=== PATIENT | female | born 1935 | race Two or more races ===

== ENCOUNTER 2016-07-30 17:53 | Inpatient (IN) | payer OTHER, MEDICAID ==
[~2016-07-30] VITALS: Ht 147.3 cm; Wt 66.6 kg
[2016-07-30 19:40] LABS: DEFINITIVE VIEW TRANSMISSION; Hematocrit 19.1 % (36.0-46.0); Mean Corpuscular Hemoglobin 17.6 pg (28.0-32.0); Mean Corpuscular Hgb Conc. 29.7 g/dL (32.0-36.0); Mean Corpuscular Volume 59.3 fL (80.0-100.0); Mean Platelet Volume 7.4 fL (7.4-10.4); Platelet Count (auto) 252 10^3/uL (140-450); Red Cell Distribution Width 19.7 % (11.6-16.0); White Blood Cell 3.7 10^3/uL (4.4-10.8)
[2016-07-30 19:51] LABS: Hemoglobin 5.7 g/dL (12.2-16.2)
[2016-07-30 19:52] LABS: Metamyelocytes % 0; Myelocytes % 0; Promyelocytes % 0; Reactive Lymphocytes 0
[2016-07-30 20:04] LABS: Albumin 2.9 g/dL (3.4-5.0); BUN/Creatinine Ratio 32.3; Calcium 8.2 mg/dL (8.5-10.1); Potassium 4.4 mmol/L (3.5-5.1)
[2016-07-30 20:15] LABS: Bilirubin, Total 0.3 mg/dL (0.2-1.0); Total Protein 7.5 g/dL (6.4-8.2)
[2016-07-30 20:51] LABS: Platelet Estimate Adequate
[2016-07-30 20:52] LABS: Anisocytosis Moderate; Hypochromia Moderate; Microcytosis Moderate; Ovalocytes FEW
[2016-07-30] MEDS ORDERED: METF-312 PO (21:16)
[2016-07-30] MEDS ORDERED: OMEP20CA5 PO (21:20)
[2016-07-30] MEDS ORDERED: ESCI10TA PO (21:20)
[2016-07-30] MEDS ORDERED: LOSA50TA6 PO (21:20)
[2016-07-30] MEDS ORDERED: NOR5T PO (21:20)
[2016-07-30] MEDS ORDERED: MELO-86 PO (21:20)
[2016-07-30] MEDS ORDERED: PANTOPRAZOLE SODIUM 40 MG/10 ML VIAL IV ONE (22:00)
[2016-07-30] MEDS ORDERED: SODIUM CHLORIDE 0.9% 1,000 ML IV ONE (22:00)
[2016-07-30] MEDS ORDERED: PHYTONADIONE (VIT K)10 MG/ML 1ML VIAL SUBCUT ONE (22:00)
[2016-07-30 22:27] LABS: INR 1.08 (0.9-1.15); Partial Thromboplastin Time 26.6 sec (22.64-33.71); Prothrombin Time 11.1 sec (9.37-12.3)
[2016-07-30 22:51] LABS: Urine Bilirubin Negative (Negative); Urine Blood Negative /uL (Negative); Urine Color Yellow (Yellow); Urine Glucose Normal (Normal); Urine Ketone Negative (Negative); Urine Nitrite Negative (Negative); Urine RBC <1 /hpf (0 - 4); Urine Squamous Epithelial Cell FEW /hpf (<5); Urine pH 5.5 (5.0-8.0)
[2016-07-31] VITALS (15 sets, daily range): BP systolic 117–157; BP diastolic 60–89
[2016-07-31 00:12] LABS: DEFINITIVE VIEW TRANSMISSION; Mean Corpuscular Hemoglobin 17.8 pg (28.0-32.0); Mean Corpuscular Hgb Conc. 29.6 g/dL (32.0-36.0); Mean Platelet Volume 8.1 fL (7.4-10.4); Platelet Count (auto) 249 10^3/uL (140-450); Red Cell Distribution Width 19.5 % (11.6-16.0); White Blood Cell 3.4 10^3/uL (4.4-10.8)
[2016-07-31 00:18] LABS: Metamyelocytes % 0; Myelocytes % 0; Promyelocytes % 0; Reactive Lymphocytes 0
[2016-07-31] MEDS ORDERED: EPOETIN ALFA 10,000 UNIT/1 ML VIAL IV ONE (00:30)
[2016-07-31] MEDS ORDERED: SODIUM CHLORIDE 0.9% 1,000 ML IV ONE (00:45)
[2016-07-31] MEDS ORDERED: DEXTROSE (50%) 50ML SYRG IV PRN (01:15)
[2016-07-31 01:30] LABS: Hypochromia Marked; Microcytosis Marked; Platelet Estimate Adequate
[2016-07-31] MEDS: methylPREDNISolone SOD SUCC 125 MG/2 ML VL IV SCH ×3 (01:30→21:44)
[2016-07-31 01:31] LABS: Anisocytosis Moderate; Ovalocytes FEW
[2016-07-31] MEDS: IPRATROPIUM BROM 0.5 MG/2.5ML INH SOL NEB SCH ×5 (02:00→18:00)
[2016-07-31] MEDS: ALBUTEROL SULF 2.5 MG/0.5ML(0.5%) NEB SOLN NEB SCH ×5 (02:00→18:00)
[2016-07-31] MEDS ORDERED: MORPHINE SULF INJ 2 MG/ML SYRINGE 1ML IV PRN (03:30)
[2016-07-31] MEDS ORDERED: NITROGLYCERIN 0.4 MG SL TAB SL PRN (03:30)
[2016-07-31] MEDS: CITALOPRAM HYDROBR 20 MG TAB PO SCH (03:47)
[2016-07-31] MEDS: InsuLIN REG 1unit/0.01ml Soln (100units/ml) SC SCH ×3 (05:43→18:03)
[2016-07-31] MEDS: ACCU-CHEK COMFORT CURVE STRIP VI SCH ×3 (05:43→18:03)
[2016-07-31] MEDS: CARVEDILOL 3.125 MG TAB PO SCH ×2 (11:16→21:45)
[2016-07-31] MEDS: PANTOPRAZOLE SODIUM 40 MG/10 ML VIAL IV SCH ×2 (11:16→21:44)
[2016-07-31] MEDS: ACETAMINOPHEN 500 MG TAB PO PRN ×2 (11:17→17:33)
[2016-07-31] MEDS: ENALAPRIL MALEATE 10 MG TAB PO SCH (11:17)
[2016-07-31 18:13] LABS: Hematocrit 29.1 % (36.0-46.0); Hemoglobin 9.1 g/dL (12.2-16.2)
[2016-08-01] MEDS: ACCU-CHEK COMFORT CURVE STRIP VI SCH ×4 (00:01→18:08)
[2016-08-01] MEDS: InsuLIN REG 1unit/0.01ml Soln (100units/ml) SC SCH ×4 (00:03→18:00)
[2016-08-01 05:35] VITALS: BP 118/41
[2016-08-01] MEDS: ACETAMINOPHEN 500 MG TAB PO PRN (05:55)
[2016-08-01 06:20] LABS: DEFINITIVE VIEW TRANSMISSION; Hematocrit 27.6 % (36.0-46.0); Hemoglobin 8.7 g/dL (12.2-16.2); Mean Corpuscular Hemoglobin 21.2 pg (28.0-32.0); Mean Corpuscular Hgb Conc. 31.5 g/dL (32.0-36.0); Mean Corpuscular Volume 67.2 fL (80.0-100.0); Mean Platelet Volume 8.1 fL (7.4-10.4); Platelet Count (auto) 256 10^3/uL (140-450); SUSPECT VIEW TRANSMISSION; White Blood Cell 4.8 10^3/uL (4.4-10.8)
[2016-08-01 06:43] LABS: Potassium 3.6 mmol/L (3.5-5.1)
[2016-08-01 06:50] LABS: Red Cell Distribution Width 27.8 % (11.6-16.0)
[2016-08-01 06:51] LABS: Metamyelocytes % 0; Myelocytes % 0; Promyelocytes % 0; Reactive Lymphocytes 0
[2016-08-01 06:58] LABS: Albumin 2.8 g/dL (3.4-5.0); BUN/Creatinine Ratio 21.7; Calcium 8.4 mg/dL (8.5-10.1)
[2016-08-01 07:02] LABS: Bilirubin, Total 0.9 mg/dL (0.2-1.0); Total Protein 7.2 g/dL (6.4-8.2)
[2016-08-01 09:00] VITALS: BP 130/67
[2016-08-01] MEDS: PANTOPRAZOLE SODIUM 40 MG/10 ML VIAL IV SCH ×2 (09:35→22:01)
[2016-08-01] MEDS: methylPREDNISolone SOD SUCC 125 MG/2 ML VL IV SCH ×2 (09:35→22:01)
[2016-08-01] MEDS: CITALOPRAM HYDROBR 20 MG TAB PO SCH (09:36)
[2016-08-01] MEDS: ENALAPRIL MALEATE 10 MG TAB PO SCH (09:36)
[2016-08-01] MEDS: CARVEDILOL 3.125 MG TAB PO SCH ×2 (09:37→22:02)
[2016-08-01] MEDS: HYDROcodone-ACET 5/325MG TAB PO PRN ×2 (12:22→20:27)
[2016-08-01 13:00] VITALS: BP 141/74
[2016-08-01 14:09] LABS: Microcytosis Marked
[2016-08-01 14:12] LABS: Anisocytosis Marked; Hypochromia Moderate; Ovalocytes FEW; Platelet Estimate Adequate; Tear Drop Cells FEW
[2016-08-01] MEDS ORDERED: GOLYTELY 4L KIT PO ONE ×2 (15:15)
[2016-08-01 17:00] VITALS: BP 137/77
[2016-08-01 21:30] VITALS: BP 137/50
[2016-08-02] MEDS: ACCU-CHEK COMFORT CURVE STRIP VI SCH ×4 (00:28→18:00)
[2016-08-02 05:00] VITALS: BP 139/69
[2016-08-02] MEDS: InsuLIN REG 1unit/0.01ml Soln (100units/ml) SC SCH ×4 (05:39→18:37)
[2016-08-02 06:30] LABS: Hematocrit 27.7 % (36.0-46.0); Hemoglobin 8.6 g/dL (12.2-16.2)
[2016-08-02] MEDS ORDERED: SODIUM CHLORIDE LOCK 10 ML ONE (08:37)
[2016-08-02] MEDS ORDERED: LIDOCAINE VISCOUS 2% 15ML UD ONE (08:37)
[2016-08-02] MEDS ORDERED: diphenhdrAMINE HCL 50 MG/1 ML VL ONE (08:38)
[2016-08-02 08:45] VITALS: BP 127/67
[2016-08-02] MEDS: HYDROcodone-ACET 5/325MG TAB PO PRN ×2 (08:45→20:57)
[2016-08-02] MEDS: PANTOPRAZOLE SODIUM 40 MG/10 ML VIAL IV SCH (09:40)
[2016-08-02] MEDS: methylPREDNISolone SOD SUCC 125 MG/2 ML VL IV SCH ×2 (09:40→21:50)
[2016-08-02] MEDS: CARVEDILOL 3.125 MG TAB PO SCH ×2 (10:00→21:51)
[2016-08-02] MEDS: ENALAPRIL MALEATE 10 MG TAB PO SCH (10:00)
[2016-08-02] MEDS: CITALOPRAM HYDROBR 20 MG TAB PO SCH (10:00)
[2016-08-02] MEDS: fentaNYL CITRATE 100 MCG/2 ML VL ONE ×2 (12:31→12:39)
[2016-08-02] MEDS: MIDAZOLAM HCL 5 MG/ML-1ML VIAL ONE ×2 (12:31→12:39)
[2016-08-02 17:00] VITALS: BP 121/69
[2016-08-02 22:13] VITALS: BP 123/77
[2016-08-02] MEDS: ACETAMINOPHEN 500 MG TAB PO PRN (22:51)
[2016-08-03] MEDS: ACCU-CHEK COMFORT CURVE STRIP VI SCH ×3 (00:29→12:00)
[2016-08-03] MEDS: InsuLIN REG 1unit/0.01ml Soln (100units/ml) SC SCH ×3 (00:33→12:00)
[2016-08-03 05:45] VITALS: BP 127/69
[2016-08-03 06:42] LABS: Hematocrit 26.7 % (36.0-46.0); Hemoglobin 8.4 g/dL (12.2-16.2)
[2016-08-03 09:00] VITALS: BP 134/70
[2016-08-03] MEDS: methylPREDNISolone SOD SUCC 125 MG/2 ML VL IV SCH (10:00)
[2016-08-03] MEDS: CARVEDILOL 3.125 MG TAB PO SCH (10:02)
[2016-08-03] MEDS: ENALAPRIL MALEATE 10 MG TAB PO SCH (10:03)
[2016-08-03] MEDS: CITALOPRAM HYDROBR 20 MG TAB PO SCH (10:03)
[2016-08-03 13:09] VITALS: BP 102/57
== END 2016-08-03 14:05 | disposition home or self-care (01) | DRG 300 ==
LOC: ER 17:59 → TELE 18:00 → TELE-CENTR 07-31 04:05
PROVIDERS: ADMIT Emergency Medicine; ATTEND Internal Medicine Pulmonary Disease
PROC: 30233N1 Transfusion of Nonautologous Red Blood Cells into Peripheral Vein, Percutaneous Approach (ICD-10-PCS; principal; 2016-07-31)
PROC: 0DJD8ZZ Inspection of Lower Intestinal Tract, Via Natural or Artificial Opening Endoscopic (ICD-10-PCS; 2016-08-02)
PROC: 0WJP8ZZ Inspection of Gastrointestinal Tract, Via Natural or Artificial Opening Endoscopic Approach (ICD-10-PCS; 2016-08-02 12:28)
DX: Q27.33 Arteriovenous malformation of digestive system vessel (principal); K92.2 Gastrointestinal hemorrhage, unspecified; F33.9 Major depressive disorder, recurrent, unspecified; E44.0 Moderate protein-calorie malnutrition; D62 Acute posthemorrhagic anemia; E11.9 Type 2 diabetes mellitus without complications; D50.0 Iron deficiency anemia secondary to blood loss (chronic); I10 Essential (primary) hypertension; K57.90 Diverticulosis of intestine, part unspecified, without perforation or abscess without bleeding; E78.5 Hyperlipidemia, unspecified; K64.8 Other hemorrhoids; M19.90 Unspecified osteoarthritis, unspecified site; Z79.899 Other long term (current) drug therapy; Z90.49 Acquired absence of other specified parts of digestive tract; Z87.81 Personal history of (healed) traumatic fracture; Z68.30 Body mass index [BMI] 30.0-30.9, adult
CPT/HCPCS: 36415; 36430; 43235; 45378; 71010; 80053; 81001; 82140; 82962; 83036; 85007; 85014; 85018; 85027; 85610; 85730; 86850; 86900; 86901; 86920; 96361; 96374; C9113; J0885; J1815; J2250; J3430

== ENCOUNTER 2017-04-22 13:32 | Inpatient (IN) | payer MEDICARE, MEDICAID ==
[~2017-04-22] VITALS: Ht 160 cm; Wt 71.0 kg
[~2017-04-22 13:32] MED LIST: ESCI10TA PO; HYDR-4683 PO; LOSA50TA6 PO; METF-370 PO; OMEP20CA74 PO
[2017-04-22 14:17] LABS: Eosinophils # (auto) 0 uL; Hemoglobin 9.8 g/dL (12.2-16.2); Platelet Count (auto) 191 10^3/uL (140-450)
[2017-04-22 14:19] LABS: Basophils # (auto) 0.1 uL; Basophils % (auto) 0.9 % (0.0-2.0); Eosinophils % (auto) 0.5 % (0.0-7.0); Hematocrit 31.2 % (36.0-46.0); Lymphocytes # (auto) 0.7 uL; Lymphocytes % (auto) 9.8 % (10.0-50.0); Mean Corpuscular Hemoglobin 22.9 pg (28.0-32.0); Mean Corpuscular Hgb Conc. 31.4 g/dL (32.0-36.0); Mean Corpuscular Volume 72.7 fL (80.0-100.0); Mean Platelet Volume 7.3 fL (6.9-10.8); Monocytes # (auto) 0.7 uL; Monocytes % (auto) 9.3 % (0.0-12.0); Neutrophils % (auto) 79.5 % (37.0-80.0); Red Cell Distribution Width 18.3 % (11.8-14.3); White Blood Cell 7.5 10^3/uL (4.4-10.8)
[2017-04-22 14:40] LABS: Albumin 3.4 g/dL (3.4-5.0); BUN/Creatinine Ratio 36.4; Bilirubin, Total 0.6 mg/dL (0.2-1.0); Calcium 8.9 mg/dL (8.5-10.1); Potassium 3.8 mmol/L (3.5-5.1); Total Protein 8.6 g/dL (6.4-8.2)
[2017-04-22] MEDS ORDERED: SODIUM CHLORIDE 0.9% 1,000 ML IVB ONE (16:21)
[2017-04-22] MEDS ORDERED: HYDROcodone-ACET 10/325MG TAB PO ONE (16:30)
[2017-04-22 17:08] LABS: INR 0.99 (0.9-1.15); Partial Thromboplastin Time 28.6 sec (22.64-33.71); Prothrombin Time 10.8 sec (9.37-12.3)
[2017-04-22 18:54] LABS: Urine Bilirubin Negative (Negative); Urine Blood 2+ /uL (Negative); Urine Color Yellow (Yellow); Urine Glucose Normal (Normal); Urine Ketone Negative (Negative); Urine Mucus FEW (None Seen); Urine Nitrite Negative (Negative); Urine RBC 13 /hpf (0 - 4); Urine Squamous Epithelial Cell FEW /hpf (<5)
[2017-04-22] MEDS ORDERED: cefTRIAXone 1GM/50ML D5W 50 ML IV ONE (19:30)
[2017-04-23] MEDS ORDERED: IBUPROFEN 600 MG TAB PO PRN (01:00)
[2017-04-23] MEDS ORDERED: DEXTROSE (50%) 50ML SYRG IV PRN (01:00)
[2017-04-23] MEDS ORDERED: ONDANSETRON HCL 4 MG/2 ML VIAL IV PRN (01:00)
[2017-04-23] MEDS ORDERED: DOCUSATE SOD 100 MG CAP PO PRN (01:00)
[2017-04-23 01:34] LABS: Temperature: 21.3 C (20.0-25.0)
[2017-04-23 03:24] VITALS: BP 147/76
[2017-04-23] MEDS ORDERED: INFLUENZA QUAD 2017-2018 0.5 ML SYRG IM ONE (03:45)
[2017-04-23] MEDS ORDERED: PNEUMOCOCCAL VACC POLYS 25 MCG/0.5 ML VIAL IM ONE (03:45)
[2017-04-23] MEDS: HYDROcodone-ACET 5/325MG TAB PO PRN ×3 (04:28→21:30)
[2017-04-23 05:00] VITALS: BP 129/69
[2017-04-23] MEDS: ACCU-CHEK COMFORT CURVE STRIP VI SCH ×3 (05:56→17:58)
[2017-04-23] MEDS: InsuLIN REG 1unit/0.01ml Soln (100units/ml) SC SCH ×3 (05:56→17:58)
[2017-04-23] MEDS: FERROUS SULFATE 325 MG TAB PO SCH ×2 (08:41→18:36)
[2017-04-23 09:40] VITALS: BP 116/74
[2017-04-23] MEDS: ENOXAPARIN SOD 40 MG/0.4 ML SYRINGE SC SCH (10:25)
[2017-04-23] MEDS: CARVEDILOL 3.125 MG TAB PO SCH ×2 (10:27→21:29)
[2017-04-23] MEDS: LOSARTAN POTASSIUM 50 MG TAB PO SCH (10:27)
[2017-04-23] MEDS: FUROSEMIDE 20 MG TAB PO SCH (10:28)
[2017-04-23] MEDS: FAMOTIDINE 20 MG TAB PO SCH ×2 (10:28→21:29)
[2017-04-23 14:05] VITALS: BP 129/68
[2017-04-23 17:29] VITALS: BP 144/70
[2017-04-23 21:27] VITALS: BP 118/68
[2017-04-23] MEDS ORDERED: cefTRIAXone 1GM/50ML D5W 50 ML IV SCH (22:00)
[2017-04-24] MEDS: ACCU-CHEK COMFORT CURVE STRIP VI SCH ×3 (01:10→13:01)
[2017-04-24] MEDS: InsuLIN REG 1unit/0.01ml Soln (100units/ml) SC SCH ×3 (01:11→12:00)
[2017-04-24 05:15] VITALS: BP 142/99
[2017-04-24] MEDS: FERROUS SULFATE 325 MG TAB PO SCH (08:39)
[2017-04-24 09:00] VITALS: BP 87/44
[2017-04-24] MEDS: CARVEDILOL 3.125 MG TAB PO SCH (10:00)
[2017-04-24] MEDS: FUROSEMIDE 20 MG TAB PO SCH (10:00)
[2017-04-24] MEDS: LOSARTAN POTASSIUM 50 MG TAB PO SCH (10:00)
[2017-04-24] MEDS: FAMOTIDINE 20 MG TAB PO SCH (10:32)
[2017-04-24] MEDS: ENOXAPARIN SOD 40 MG/0.4 ML SYRINGE SC SCH (10:32)
[2017-04-24 13:00] VITALS: BP 94/50
[2017-04-24 15:18] VITALS: BP 94/50
== END 2017-04-24 14:00 | disposition home health service (06) | DRG 554 ==
LOC: ER 13:41 → OVERFLOW 13:42 → WEST WING 04-23 02:30
PROVIDERS: ADMIT Nurse Practitioner; ATTEND Internal Medicine
DX: M19.011 Primary osteoarthritis, right shoulder (principal); E11.9 Type 2 diabetes mellitus without complications; I11.9 Hypertensive heart disease without heart failure; D50.8 Other iron deficiency anemias; E78.5 Hyperlipidemia, unspecified; G89.29 Other chronic pain; N39.0 Urinary tract infection, site not specified; M25.411 Effusion, right shoulder; R29.6 Repeated falls; K57.30 Diverticulosis of large intestine without perforation or abscess without bleeding; M43.16 Spondylolisthesis, lumbar region; Z82.49 Family history of ischemic heart disease and other diseases of the circulatory system; Z90.49 Acquired absence of other specified parts of digestive tract; Z23 Encounter for immunization
CPT/HCPCS: 36415; 71010; 73030; 73200; 74176; 80053; 81001; 82962; 83735; 83880; 85025; 85610; 85730; 87086; 87088; 87186; 93005; 94761; 96361; 96365; J0696; J1815

== ENCOUNTER 2017-07-06 18:30 | Emergency (ER) | payer OTHER, MEDICAID ==
[~2017-07-06] VITALS: Ht 137.2 cm; Wt 68.0 kg
[2017-07-06 19:14] LABS: Eosinophils # (auto) 0 uL; Mean Corpuscular Hemoglobin 21.1 pg (28.0-32.0)
[2017-07-06 19:15] LABS: Basophils # (auto) 0.1 uL; Basophils % (auto) 1.5 % (0.0-2.0); Eosinophils % (auto) 0.2 % (0.0-7.0); Hematocrit 29.2 % (36.0-46.0); Lymphocytes # (auto) 0.6 uL; Lymphocytes % (auto) 8.2 % (10.0-50.0); Mean Corpuscular Volume 68.1 fL (80.0-100.0); Monocytes # (auto) 0.4 uL; Monocytes % (auto) 6.5 % (0.0-12.0); Neutrophils # (auto) 5.6 uL; Neutrophils % (auto) 83.6 % (37.0-80.0); Platelet Count (auto) 194 10^3/uL (140-450); Red Blood Cells 4.29 10^6/uL (4.0-5.20); White Blood Cell 6.7 10^3/uL (4.4-10.8)
[2017-07-06 19:41] LABS: Alanine Aminotransferase 20 U/L (13-56); Alkaline Phosphatase 133 U/L (45-117); Anion Gap 10 (5-15); Aspartate Aminotransferase 19 U/L (15-37); BUN/Creatinine Ratio 21.9; Bilirubin, Total 0.8 mg/dL (0.2-1.0); Blood Urea Nitrogen 14 mg/dL (7-18); Calcium 8.3 mg/dL (8.5-10.1); Carbon Dioxide 25 mmol/L (21-32); Chloride 104 mmol/L (98-107); GFR African American 114 mL/min; GFR Non-African American 94 mL/min; Glucose 198 mg/dL (74-106); Potassium 3.6 mmol/L (3.5-5.1); Sodium 139 mmol/L (136-145); Total Protein 7.7 g/dL (6.4-8.2)
[2017-07-06 21:49] LABS: Urine Bacteria NONE SEEN /hpf (None Seen); Urine Blood Negative /uL (Negative); Urine Mucus FEW (None Seen); Urine WBC <1 /hpf (0 - 5)
[2017-07-06 23:45] VITALS: BP 125/73
== END 2017-07-06 23:50 | disposition home or self-care (01) ==
LOC: EDBD 18:30 → ER 18:37
DX: S16.1XXA Strain of muscle, fascia and tendon at neck level, initial encounter (principal); R41.82 Altered mental status, unspecified; G93.41 Metabolic encephalopathy; M19.90 Unspecified osteoarthritis, unspecified site; E11.9 Type 2 diabetes mellitus without complications; E78.5 Hyperlipidemia, unspecified; I10 Essential (primary) hypertension; Z90.49 Acquired absence of other specified parts of digestive tract; Z79.899 Other long term (current) drug therapy; W18.39XA Other fall on same level, initial encounter; Y93.89 Activity, other specified; Y99.8 Other external cause status; Y92.009 Unspecified place in unspecified non-institutional (private) residence as the place of occurrence of the external cause
CPT/HCPCS: 36415; 70450; 71045; 72125; 72131; 80053; 81001; 82962; 83605; 83880; 84484; 85025; 87040; 87086; 93005

== ENCOUNTER 2017-08-17 11:13 | Emergency (ER) | payer OTHER, MEDICAID ==
[~2017-08-17] VITALS: Ht 147.3 cm; Wt 63.5 kg
[2017-08-17 11:18] VITALS: BP 154/90
[2017-08-17] MEDS ORDERED: KETOROLAC TROMETH 60MG/2ML VIAL IM ONE (14:00)
== END 2017-08-17 15:59 | disposition home or self-care (01) ==
LOC: ER 11:13 → EDBD 11:13 → ER 15:59
DX: M79.605 Pain in left leg (principal); E11.9 Type 2 diabetes mellitus without complications; I10 Essential (primary) hypertension; J45.909 Unspecified asthma, uncomplicated; K21.9 Gastro-esophageal reflux disease without esophagitis; M19.90 Unspecified osteoarthritis, unspecified site; E78.5 Hyperlipidemia, unspecified; Z79.899 Other long term (current) drug therapy; Z90.49 Acquired absence of other specified parts of digestive tract
CPT/HCPCS: 93971; 96372; 99284; J1885

== ENCOUNTER 2017-10-14 13:39 | Inpatient (IN) | payer OTHER, MEDICAID ==
[~2017-10-14] VITALS: Ht 160 cm; Wt 68.2 kg
[2017-10-14] MEDS ORDERED: SODIUM CHLORIDE 0.9% 1,000 ML IVB ONE ×2 (15:09→17:07)
[2017-10-14 15:14] LABS: Albumin 3.5 g/dL (3.4-5.0); Anion Gap 11 (5-15); Blood Urea Nitrogen 24 mg/dL (7-18); Calcium 9.3 mg/dL (8.5-10.1); Carbon Dioxide 24 mmol/L (21-32); Chloride 106 mmol/L (98-107); Glucose 126 mg/dL (74-106); Magnesium 1.9 mg/dL (1.6-2.6); Sodium 141 mmol/L (136-145)
[2017-10-14 15:16] LABS: BUN/Creatinine Ratio 40.7; Blood Alcohol < 3.0 mg/dL (0-5); GFR African American 125 mL/min; GFR Non-African American 104 mL/min
[2017-10-14 15:22] LABS: Alanine Aminotransferase 34 U/L (13-56); Alkaline Phosphatase 161 U/L (45-117); Aspartate Aminotransferase 55 U/L (15-37); Basophils # (auto) 0 uL; Basophils % (auto) 0.9 % (0.0-2.0); Bilirubin, Total 0.7 mg/dL (0.2-1.0); Eosinophils # (auto) 0 uL; Eosinophils % (auto) 0.5 % (0.0-7.0); Hematocrit 41.8 % (36.0-46.0); Lymphocytes # (auto) 0.5 uL; Lymphocytes % (auto) 10.3 % (10.0-50.0); Mean Corpuscular Hemoglobin 27.9 pg (28.0-32.0); Mean Corpuscular Hgb Conc. 33.5 g/dL (32.0-36.0); Mean Corpuscular Volume 83.4 fL (80.0-100.0); Monocytes # (auto) 0.3 uL; Monocytes % (auto) 6.6 % (0.0-12.0); Neutrophils # (auto) 3.7 uL; Neutrophils % (auto) 81.7 % (37.0-80.0); Nucleated Red Blood Cells % 0.2 %; Platelet Count (auto) 132 10^3/uL (140-450); Red Blood Cells 5.01 10^6/uL (4.0-5.20); Total Protein 8.9 g/dL (6.4-8.2); White Blood Cell 4.6 10^3/uL (4.4-10.8)
[2017-10-14 15:43] LABS: INR 0.98 (0.9-1.15); Partial Thromboplastin Time 27.6 sec (23.78-33.04); Prothrombin Time 10.5 sec (9.27-12.13)
[2017-10-14 17:18] LABS: Urine Bacteria FEW /hpf (None Seen); Urine Blood 2+ /uL (Negative); Urine Specific Gravity 1.017 (1.001-1.035); Urine WBC 22 /hpf (0 - 5)
[2017-10-14] MEDS ORDERED: cefTRIAXone 1GM/10ml IVPUSH 10 ML IV ONE ×2 (17:30→18:00)
[2017-10-14 17:33] LABS: Alcohol, Urine < 3.0 mg/dL (0-5); Amphetamine Screen, Urine NEGATIVE (NEGATIVE); Barbiturate Scree,Urine NEGATIVE (NEGATIVE); Benzodiazephine Screen, Urine NEGATIVE (NEGATIVE); Cannabinoid Screen, Urine NEGATIVE (NEGATIVE); Cocaine Screen, Urine NEGATIVE (NEGATIVE); Opiate Scree,Urine POSITIVE (NEGATIVE); Phencyclidine Screen, Urine NEGATIVE (NEGATIVE)
[2017-10-14] MEDS ORDERED: NITROGLYCERIN 0.4 MG SL TAB SL PRN (18:00)
[2017-10-14] MEDS ORDERED: LORazepam 0.5 MG TAB PO PRN (18:00)
[2017-10-14] MEDS ORDERED: LABETALOL HCL 5 MG/ML ML 20ML VIAL IV PRN (18:00)
[2017-10-14] MEDS ORDERED: MORPHINE SULFATE 8mg/ml INJ SDV IV PRN (18:00)
[2017-10-14] MEDS ORDERED: PROMETHAZINE HCL 25 MG/ML 1ML IV PRN (18:00)
[2017-10-14] MEDS ORDERED: ACETAMINOPHEN 500 MG TAB PO PRN (18:00)
[2017-10-14] MEDS ORDERED: DEXTROSE (50%) 50ML SYRG IV PRN (18:00)
[2017-10-14] MEDS ORDERED: TEMAZEPAM 15 MG CAP PO PRN (18:00)
[2017-10-14] MEDS ORDERED: LACTULOSE 20Gm/30ML SOLN PO PRN (18:00)
[2017-10-14] MEDS ORDERED: FUROSEMIDE 40 MG/4 ML VIAL ONE (18:12)
[2017-10-14] MEDS: NITROGLYCERIN 0.2MG/HR TOPICAL PATCH TD SCH (18:24)
[2017-10-14] MEDS ORDERED: FUROSEMIDE 40 MG/4 ML VIAL IV ONE (18:30)
[2017-10-14] MEDS: POTASSIUM CHL 20 Meq TABLET PO SCH (20:26)
[2017-10-14] MEDS: ENOXAPARIN SOD 40 MG/0.4 ML SYRINGE SC SCH (20:29)
[2017-10-14] MEDS: CARVEDILOL 3.125 MG TAB PO SCH (22:21)
[2017-10-14] MEDS: ATORVASTATIN 20 MG TAB PO SCH (22:22)
[2017-10-14] MEDS: ACCU-CHEK COMFORT CURVE STRIP VI SCH (22:33)
[2017-10-14] MEDS: InsuLIN REG 1unit/0.01ml Soln (100units/ml) SC SCH (22:33)
[2017-10-15] MEDS: InsuLIN REG 1unit/0.01ml Soln (100units/ml) SC SCH ×4 (07:00→22:00)
[2017-10-15] MEDS: ACCU-CHEK COMFORT CURVE STRIP VI SCH ×4 (07:01→22:51)
[2017-10-15 07:22] LABS: Basophils # (auto) 0 uL; Basophils % (auto) 0.6 % (0.0-2.0); Eosinophils # (auto) 0.1 uL; Eosinophils % (auto) 0.9 % (0.0-7.0); Hematocrit 38.7 % (36.0-46.0); Hemoglobin 12.6 g/dL (12.2-16.2); Lymphocytes # (auto) 1.1 uL; Lymphocytes % (auto) 19.8 % (10.0-50.0); Mean Corpuscular Hemoglobin 27.6 pg (28.0-32.0); Mean Corpuscular Hgb Conc. 32.7 g/dL (32.0-36.0); Mean Corpuscular Volume 84.5 fL (80.0-100.0); Monocytes # (auto) 0.6 uL; Monocytes % (auto) 10.6 % (0.0-12.0); Neutrophils # (auto) 3.8 uL; Neutrophils % (auto) 68.1 % (37.0-80.0); Nucleated Red Blood Cells % 0.1 %; Platelet Count (auto) 128 10^3/uL (140-450); Red Blood Cells 4.58 10^6/uL (4.0-5.20); White Blood Cell 5.6 10^3/uL (4.4-10.8)
[2017-10-15 07:29] LABS: Red Cell Distribution Width 25.2 % (11.8-14.3)
[2017-10-15 07:50] LABS: Potassium 3.7 mmol/L (3.5-5.1); Total Protein 7.6 g/dL (6.4-8.2)
[2017-10-15] MEDS: cefTRIAXone 1GM/10ml IVPUSH 10 ML IV SCH (08:34)
[2017-10-15 09:46] LABS: BUN/Creatinine Ratio 42.1; Bilirubin, Total 0.7 mg/dL (0.2-1.0); Calcium 8.8 mg/dL (8.5-10.1)
[2017-10-15] MEDS ORDERED: OMEPRAZOLE 20MG/10ML ORAL SUSP PO SCH (10:00)
[2017-10-15] MEDS ORDERED: PATIENTS OWN MEDICATION (Escitalopram Oxalate (Lexapro) 1 TAB) PO SCH (10:00)
[2017-10-15] MEDS ORDERED: ENALAPRIL MALEATE 2.5 MG TAB PO SCH (10:00)
[2017-10-15] MEDS: LOSARTAN POTASSIUM 50 MG TAB PO SCH (10:58)
[2017-10-15] MEDS: FUROSEMIDE 40 MG/4 ML VIAL IV SCH (10:58)
[2017-10-15] MEDS: ASPirin 81 mg TAB PO SCH (10:58)
[2017-10-15] MEDS: PANTOPRAZOLE 40 MG TAB PO SCH (10:59)
[2017-10-15] MEDS: POTASSIUM CHL 20 Meq TABLET PO SCH (10:59)
[2017-10-15] MEDS: CARVEDILOL 3.125 MG TAB PO SCH ×2 (11:00→22:43)
[2017-10-15] MEDS: MORPHINE SULFATE 8mg/ml INJ SDV IV PRN ×2 (14:23→23:22)
[2017-10-15] MEDS: NITROGLYCERIN 0.2MG/HR TOPICAL PATCH TD SCH (17:26)
[2017-10-15] MEDS: ENOXAPARIN SOD 40 MG/0.4 ML SYRINGE SC SCH (17:26)
[2017-10-15 19:50] VITALS: BP 110/52
[2017-10-15 22:00] VITALS: BP 110/52
[2017-10-15] MEDS: ATORVASTATIN 20 MG TAB PO SCH (22:42)
[2017-10-16 05:00] VITALS: BP 116/67
[2017-10-16] MEDS: MORPHINE SULFATE 8mg/ml INJ SDV IV PRN (05:35)
[2017-10-16] MEDS: InsuLIN REG 1unit/0.01ml Soln (100units/ml) SC SCH ×4 (06:39→22:19)
[2017-10-16] MEDS: ACCU-CHEK COMFORT CURVE STRIP VI SCH ×4 (06:39→22:18)
[2017-10-16 06:55] LABS: Basophils # (auto) 0 uL; Basophils % (auto) 0.9 % (0.0-2.0); Eosinophils # (auto) 0.1 uL; Eosinophils % (auto) 2.7 % (0.0-7.0); Hematocrit 34.9 % (36.0-46.0); Hemoglobin 11.4 g/dL (12.2-16.2); Lymphocytes # (auto) 0.9 uL; Lymphocytes % (auto) 20.5 % (10.0-50.0); Mean Corpuscular Hemoglobin 27.5 pg (28.0-32.0); Mean Corpuscular Hgb Conc. 32.8 g/dL (32.0-36.0); Mean Corpuscular Volume 84.1 fL (80.0-100.0); Monocytes # (auto) 0.5 uL; Neutrophils # (auto) 2.8 uL; Neutrophils % (auto) 63.9 % (37.0-80.0); Nucleated Red Blood Cells % 0.1 %; Platelet Count (auto) 119 10^3/uL (140-450); Red Blood Cells 4.15 10^6/uL (4.0-5.20); White Blood Cell 4.5 10^3/uL (4.4-10.8)
[2017-10-16 07:09] LABS: BUN/Creatinine Ratio 48.9; Calcium 8.7 mg/dL (8.5-10.1); Potassium 3.8 mmol/L (3.5-5.1)
[2017-10-16 07:32] LABS: Red Cell Distribution Width 25.3 % (11.8-14.3)
[2017-10-16 08:00] VITALS: BP 122/73
[2017-10-16 08:30] LABS: Folate (Folic Acid) 17.16 ng/mL (5.38-24)
[2017-10-16] MEDS: cefTRIAXone 1GM/10ml IVPUSH 10 ML IV SCH (09:35)
[2017-10-16] MEDS: FUROSEMIDE 40 MG/4 ML VIAL IV SCH (09:36)
[2017-10-16] MEDS: HYDROcodone-ACET 5/325MG TAB PO PRN (09:36)
[2017-10-16] MEDS: PANTOPRAZOLE 40 MG TAB PO SCH (09:37)
[2017-10-16] MEDS: POTASSIUM CHL 20 Meq TABLET PO SCH (09:37)
[2017-10-16] MEDS: LOSARTAN POTASSIUM 50 MG TAB PO SCH (09:37)
[2017-10-16] MEDS: ASPirin 81 mg TAB PO SCH (09:37)
[2017-10-16] MEDS: CARVEDILOL 3.125 MG TAB PO SCH ×2 (09:38→21:57)
[2017-10-16 11:57] VITALS: BP 103/68
[2017-10-16 16:03] VITALS: BP 109/68
[2017-10-16] MEDS: ENOXAPARIN SOD 40 MG/0.4 ML SYRINGE SC SCH (18:27)
[2017-10-16] MEDS: NITROGLYCERIN 0.2MG/HR TOPICAL PATCH TD SCH (18:27)
[2017-10-16] MEDS: ATORVASTATIN 20 MG TAB PO SCH (21:57)
[2017-10-16 22:00] VITALS: BP 123/59
[2017-10-17] MEDS: HYDROcodone-ACET 5/325MG TAB PO PRN (01:07)
[2017-10-17 05:00] VITALS: BP 112/65
[2017-10-17 06:02] LABS: Basophils # (auto) 0 uL; Basophils % (auto) 0.6 % (0.0-2.0); Eosinophils # (auto) 0 uL; Eosinophils % (auto) 0.8 % (0.0-7.0); Hematocrit 35.9 % (36.0-46.0); Lymphocytes % (auto) 17.4 % (10.0-50.0); Mean Corpuscular Hemoglobin 28.2 pg (28.0-32.0); Mean Corpuscular Hgb Conc. 33.4 g/dL (32.0-36.0); Mean Corpuscular Volume 84.3 fL (80.0-100.0); Monocytes # (auto) 0.7 uL; Monocytes % (auto) 11.9 % (0.0-12.0); Neutrophils # (auto) 3.8 uL; Neutrophils % (auto) 69.3 % (37.0-80.0); Nucleated Red Blood Cells % 0.1 %; Platelet Count (auto) 118 10^3/uL (140-450); Red Blood Cells 4.25 10^6/uL (4.0-5.20); White Blood Cell 5.5 10^3/uL (4.4-10.8)
[2017-10-17 06:08] LABS: Calcium 8.9 mg/dL (8.5-10.1); Potassium 3.4 mmol/L (3.5-5.1)
[2017-10-17 06:10] LABS: BUN/Creatinine Ratio 36.5
[2017-10-17 06:16] LABS: Red Cell Distribution Width 24.6 % (11.8-14.3)
[2017-10-17] MEDS: InsuLIN REG 1unit/0.01ml Soln (100units/ml) SC SCH ×2 (06:16→11:30)
[2017-10-17] MEDS: ACCU-CHEK COMFORT CURVE STRIP VI SCH ×2 (06:16→12:14)
[2017-10-17 08:00] VITALS: BP 135/76
[2017-10-17 08:31] VITALS: BP 135/76
[2017-10-17] MEDS ORDERED: POTASSIUM CHL 20 Meq TABLET PO ONE (09:45)
[2017-10-17] MEDS: POTASSIUM CHL 20 Meq TABLET PO SCH (10:00)
[2017-10-17] MEDS: LOSARTAN POTASSIUM 50 MG TAB PO SCH (10:01)
[2017-10-17] MEDS: CARVEDILOL 3.125 MG TAB PO SCH (10:01)
[2017-10-17] MEDS: FUROSEMIDE 40 MG/4 ML VIAL IV SCH (10:02)
[2017-10-17] MEDS: ASPirin 81 mg TAB PO SCH (10:02)
[2017-10-17] MEDS: PANTOPRAZOLE 40 MG TAB PO SCH (10:02)
[2017-10-17] MEDS: cefTRIAXone 1GM/10ml IVPUSH 10 ML IV SCH (10:02)
[2017-10-17 11:15] VITALS: BP 135/76
[2017-10-17 12:58] VITALS: BP 125/76
== END 2017-10-17 13:30 | disposition home or self-care (01) | DRG 689 ==
LOC: EDBD 13:39 → ER 13:39 → TELE 13:40 → TELE-WESTW 10-15 19:50
PROVIDERS: ADMIT Internal Medicine; ATTEND Internal Medicine
DX: N39.0 Urinary tract infection, site not specified (principal); G93.41 Metabolic encephalopathy; I11.0 Hypertensive heart disease with heart failure; E11.9 Type 2 diabetes mellitus without complications; I16.0 Hypertensive urgency; J45.909 Unspecified asthma, uncomplicated; E78.5 Hyperlipidemia, unspecified; E66.3 Overweight; F32.9 Major depressive disorder, single episode, unspecified; H91.90 Unspecified hearing loss, unspecified ear; K21.9 Gastro-esophageal reflux disease without esophagitis; M19.90 Unspecified osteoarthritis, unspecified site; K59.00 Constipation, unspecified; F41.9 Anxiety disorder, unspecified; G47.00 Insomnia, unspecified; I70.0 Atherosclerosis of aorta; Z82.49 Family history of ischemic heart disease and other diseases of the circulatory system; Z68.26 Body mass index [BMI] 26.0-26.9, adult; Z79.899 Other long term (current) drug therapy; Z90.49 Acquired absence of other specified parts of digestive tract
CPT/HCPCS: 36415; 36600; 51702; 70450; 71045; 80048; 80053; 80061; 80307; 80320; 81001; 82140; 82550; 82607; 82746; 82805; 82962; 83036; 83605; 83735; 83880; 84443; 84484; 85025; 85610; 85730; 87040; 87086; 87088; 87186; 93005; 93306; 93886; 94761; 96361; 96372; 96374; 96375; J1815; J2270